=== PATIENT | female | born 1985 | race Caucasian/White ===

== ENCOUNTER 2019-05-26 13:25 | Emergency (ER) | payer OTHER, SELFPAY ==
[2019-05-26 13:42] VITALS: BP 135/80; PULSE 111; RESP 20; TEMP 37.3; O2SAT 100
--- NOTE | 2019-05-26 14:55 | ED.URI ---
HPI - URI/Sore Throat General Chief Complaint: Upper Respiratory Infection Stated Complaint: congestion/sore throat / fever/cough Time Seen by Provider: 05/26/19 14:55 Source: patient and RN notes reviewed Mode of arrival: ambulatory Limitations: no limitations History of Present Illness HPI Narrative: 33-year-old female who presents to [facility] care with complaints of sore throat which started yesterday afternoon increased in intensity overnight patient has low-grade fevers denies any chills or sweats. 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 Patient states that her throat is scratchy painful has been taking Tylenol and Ibuprofen.Patient has noted some cough with expectoration of clear mucous. MD elicited complaint: fever, cough and sore throat Onset (ago): day(s) (1) Consistency: progressively worsening Severity: moderate Pain scale (0-10): 5 Description of mucous: clear Able to tolerate fluids by mouth: Yes Exacerbating factors: swallowing Relieving factors: nothing Context: sick contacts Associated symptoms: fever and sore throat Treatments prior to arrival: acetaminophen and ibuprofen Related Data Home Medications Medication Instructions Recorded Confirmed omeprazole magnesium [Prilosec OTC] 20 mg PO DAILY 03/27/19 05/26/19 ondansetron 4 mg TRANSLINGUAL DAILY PRN 03/27/19 05/26/19 amitriptyline 25 mg DAILY 05/26/19 05/26/19 Allergies Allergy/AdvReac Type Severity Reaction Status Date / Time aloe vera Allergy Unknown Verified 04/03/19 09:03 Review of Systems Review of Systems: Narrative: CONSTITUTIONAL: low grade fever, chills, or sweats. EYES: Denies visual changes, redness, or discharge. ENT: Denies rhinorrhea, congestion,positive positive sore throat, no otalgia. CARDIOVASCULAR: Denies chest pain, palpitations, or edema. RESPIRATORY: Positive cough no dyspnea. GASTROINTESTINAL: Denies abdominal pain, nausea, vomiting, or diarrhea. GENITOURINARY: Denies dysuria or hematuria. SKIN: Denies rash or itching. MUSCULOSKELETAL: Denies back pain, joint pain, or myalgia. NEUROLOGIC: Denies headache, numbness, or weakness. PSYCHIATRIC: Denies anxiety or depression. All systems reviewed & are unremarkable except as noted in HPI and below PMFSH Past Medical History Medical History (Updated 05/26/19 @ 17:52 by Marycruz Oro NP) Depression GERD (gastroesophageal reflux disease) Surgical History Surgical History Hx of cholecystectomy Hx of endoscopic retrograde cholangiopancreatography Hx of esophagogastroduodenoscopy Family History Family History Grandparent Family history of osteoporosis Hypertension Family history of emphysema Family history of coronary artery disease Family history of type 2 diabetes mellitus Family history of renal failure Family history of congestive heart failure Acute myocardial infarction Hairy cell leukemia Father Hypertension Family history of diabetes mellitus in first degree relative Family history of sleep apnea Family history of neuropathy Family history of type 2 diabetes mellitus Diabetes mellitus Mother Hypertension Asthma Family history of arthritis Family history of bipolar disorder Family history of congenital heart disease Family history of chronic obstructive pulmonary disease Sibling Family history of bipolar disorder Social History Social History Smoking packs per day: 0.25 Smoking cigarettes per day: 5.0 Years smoked: 3 Smoking pack-years: 0.75 Smoking status: Never smoker Tobacco type: cigarettes Alcohol intake: current Drinks per week: 3 Substance use: never Exam Narrative: Exam Narrative: GENERAL: Well-appearing, well-nourished, and in no acute distress. HEAD: Normocephalic, atraumatic. EYES: PERRLA and EOMI. ENT: Nares clear, no
== END 2019-05-26 15:11 | disposition home or self-care (01) ==
PROVIDERS: Emergency Provider Registered Nurse
DX: J02.0 Streptococcal pharyngitis (principal); F17.210 Nicotine dependence, cigarettes, uncomplicated; K21.9 Gastro-esophageal reflux disease without esophagitis; F32.9 Major depressive disorder, single episode, unspecified
CPT/HCPCS: 87804; 87880; 99213; G0463

== ENCOUNTER 2020-01-04 18:15 | Emergency (ER) | payer OTHER, SELFPAY ==
[2020-01-04 18:27] VITALS: BP 145/99; PULSE 108; RESP 20; TEMP 37.3; O2SAT 100
--- NOTE | 2020-01-04 19:00 | ED.URI ---
HPI - URI/Sore Throat General Chief Complaint: Upper Respiratory Infection Stated Complaint: upper respiratory infection Source: patient Mode of arrival: ambulatory Limitations: no limitations History of Present Illness HPI Narrative: Patient is a 34-year-old female who presents with sore throat, headache, body aches, cough and general malaise x2 days. 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 She has had positive COVID exposures over the past weeks. She reports a medical history of GERD and depression. She denies taking any dsgg-srg-[id number] medications at this time. MD elicited complaint: cough Related Data Home Medications Medication Instructions Recorded Confirmed sertraline 50 mg DAILY 01/04/20 01/04/20 Allergies Allergy/AdvReac Type Severity Reaction Status Date / Time aloe vera Allergy Unknown Verified 04/03/19 09:03 Review of Systems Review of Systems: Narrative: CONSTITUTIONAL: Denies fever, chills, or sweats. EYES: Denies visual changes, redness, or discharge. ENT: Denies rhinorrhea, congestion, or otalgia. Reports sore throat CARDIOVASCULAR: Denies chest pain, palpitations, or edema. RESPIRATORY: Reports cough, denies dyspnea. GASTROINTESTINAL: Denies abdominal pain, nausea, vomiting, or diarrhea. GENITOURINARY: Denies dysuria or hematuria. SKIN: Denies rash or itching. MUSCULOSKELETAL: Denies back pain, joint pain, or myalgia. NEUROLOGIC: Denies headache, numbness, dizziness, or weakness. PSYCHIATRIC: Denies anxiety or depression. [facility] Past Medical History Medical History Depression GERD (gastroesophageal reflux disease) Surgical History Surgical History Hx of cholecystectomy Hx of endoscopic retrograde cholangiopancreatography Hx of esophagogastroduodenoscopy Family History Family History Grandparent Family history of osteoporosis Hypertension Family history of emphysema Family history of coronary artery disease Family history of type 2 diabetes mellitus Family history of renal failure Family history of congestive heart failure Acute myocardial infarction Hairy cell leukemia Father Hypertension Family history of diabetes mellitus in first degree relative Family history of sleep apnea Family history of neuropathy Family history of type 2 diabetes mellitus Diabetes mellitus Mother Hypertension Asthma Family history of arthritis Family history of bipolar disorder Family history of congenital heart disease Family history of chronic obstructive pulmonary disease Sibling Family history of bipolar disorder Social History Social History Smoking packs per day: 0.25 Smoking cigarettes per day: 5.0 Years smoked: 3 Smoking pack-years: 0.75 Smoking status: Never smoker Tobacco type: cigarettes Alcohol intake: current Drinks per week: 3 Substance use: never Gender identity (if verbalized by the patient): Female Exam Narrative: Exam Narrative: GENERAL: Well-appearing, well-nourished, and in no acute distress. HEAD: Normocephalic, atraumatic. EYES: No redness or drainage. Conjunctiva are normal. ENT: Mucous membranes pink and moist. Nares clear. No rhinorrhea. Throat positive for erythema and edema, no exudate l. Uvula midline. NECK: AROM. Supple. No lymphadenopathy. CHEST: No respiratory distress. Clear to auscultation. HEART: Regular rate and rhythm. No murmur appreciated. Normal peripheral pulses. GI: Soft, nontender without rebound, or guarding. No distention. Bowel sounds normal in all quadrants. EXTREMITIES: Normal range of motion. No edema. SKIN: Warm, dry, no rash. NEURO: No focal deficits. Alert and oriented x3. Gait steady. PSYCH: Normal affect. No signs of depression or anxiety.
== END 2020-01-04 19:13 | disposition home or self-care (01) ==
PROVIDERS: Emergency Provider Nurse Practitioner; PCP Nurse Practitioner Psychiatric/Mental Health
DX: J06.9 Acute upper respiratory infection, unspecified (principal); Z20.828 Contact with and (suspected) exposure to other viral communicable diseases; F32.9 Major depressive disorder, single episode, unspecified; K21.9 Gastro-esophageal reflux disease without esophagitis
CPT/HCPCS: 87081; 87880; 99213; G0463

== ENCOUNTER 2020-08-24 15:41 | Emergency (ER) | payer OTHER, SELFPAY ==
[2020-08-24 15:49] VITALS: BP 129/87; PULSE 99; RESP 18; TEMP 36.9; O2SAT 100
[2020-08-24 15:52] VITALS: BP 129/87; PULSE 99; RESP 18; TEMP 36.9; O2SAT 100
--- NOTE | 2020-08-24 15:59 | ED.EAR ---
HPI - Ear Problem General Chief complaint: Ear Stated complaint: Ear pain Source: patient and RN notes reviewed Mode of arrival: ambulatory Limitations: no limitations History of Present Illness HPI Narrative: This is a 34-year-old female who presented to urgent care with complaints of left ear pain. According to patient a couple days ago she started experiencing discomfort in ear fullness to her left ear. Patient notes that she will occasionally hear a popping sound when she would be important to blow her nose. Patient does have a history of otitis media. According to patient a couple years ago she had tubes inserted into her ear. Believe seizure allergies her condition has worsened. She was discharged home with to treat her ear infection. She denies any ear drainage, decreased hearing or fever. MD Complaint: ear discharge Location: left ear Related Data Home Medications Medication Instructions Recorded Confirmed sertraline 50 mg DAILY 01/04/20 01/04/20 Allergies Allergy/AdvReac Type Severity Reaction Status Date / Time aloe vera Allergy Unknown Verified 04/03/19 09:03 Review of Systems Review of Systems: Narrative: A 14 organ system Review of Systems was performed and pertinent positives included in the HPI, otherwise remaining ROS is negative. [facility] Past Medical History Medical History (Updated 08/24/20 @ 15:58 by TANISHA Martin) Depression GERD (gastroesophageal reflux disease) Surgical History Surgical History Hx of cholecystectomy Hx of endoscopic retrograde cholangiopancreatography Hx of esophagogastroduodenoscopy Family History Family History Grandparent Family history of osteoporosis Hypertension Family history of emphysema Family history of coronary artery disease Family history of type 2 diabetes mellitus Family history of renal failure Family history of congestive heart failure Acute myocardial infarction Hairy cell leukemia Father Hypertension Family history of diabetes mellitus in first degree relative Family history of sleep apnea Family history of neuropathy Family history of type 2 diabetes mellitus Diabetes mellitus Mother Hypertension Asthma Family history of arthritis Family history of bipolar disorder Family history of congenital heart disease Family history of chronic obstructive pulmonary disease Sibling Family history of bipolar disorder Social History Social History Smoking packs per day: 0.25 Smoking cigarettes per day: 5.0 Years smoked: 3 Smoking pack-years: 0.75 Smoking status: Never smoker Tobacco type: cigarettes Alcohol intake: current Drinks per week: 3 Substance use: never Gender identity (if verbalized by the patient): Female Exam Narrative: Exam Narrative: GENERAL: This is a well-nourished, well-developed patient, in no apparent distress. HEAD: normocephalic, atraumatic. EYES: PERRL. Sclera clear/white. Vision is grossly intact. EARS: External ears normal, auditory canals and TM edematous with erythematous NOSE: External nose normal with no obvious nasal discharge, nares without redness, no rhinorrhea. THROAT: Mucous membranes moist, posterior pharynx clear. NECK: Neck supple, non-tender without lymphadenopathy, masses or thyromegaly. CARDIOVASCULAR: Regular rate and rhythm without murmurs, gallops, or rubs. RESPIRATORY: Clear to auscultation. Breath sounds equal bilaterally. No wheezes, rales, or rhonchi. GASTROINTESTINAL: Abdomen soft, non-tender, nondistended. Bowel sounds are active. No hepato-splenomegaly, or palpable masses. No guarding. SKIN: warm, intact with no suspicious lesions or rash, good texture and turgor. NEURO: awake, alert, and oriented to person, place and time. There were no obvious focal neurologic abnormalities. Steady
== END 2020-08-24 15:59 | disposition home or self-care (01) ==
PROVIDERS: Emergency Provider Nurse Practitioner; PCP Nurse Practitioner Psychiatric/Mental Health
DX: H66.92 Otitis media, unspecified, left ear (principal); F17.210 Nicotine dependence, cigarettes, uncomplicated; K21.9 Gastro-esophageal reflux disease without esophagitis; F32.9 Major depressive disorder, single episode, unspecified
CPT/HCPCS: 99213; G0463

== ENCOUNTER 2022-02-09 14:28 | Emergency (ER) | payer OTHER, SELFPAY ==
[2022-02-09 14:30] VITALS: BP 139/84; PULSE 98; RESP 18; TEMP 36.8; O2SAT 100
--- NOTE | 2022-02-09 14:38 | ED.URI ---
HPI - URI/Sore Throat General Chief Complaint: Ear Stated Complaint: Lt Ear Irritation Time Seen by Provider: 02/09/22 14:39 Source: patient, RN notes reviewed and old records reviewed Mode of arrival: ambulatory Limitations: no limitations History of Present Illness HPI Narrative: 36-year-old female presents to the [facility] with complaints of left ear pain that started on Sunday. Patient reports history ear infections and even had tubes placed couple of years ago. ENT is Dr. Douglas. Denies any headaches. No sinus congestion. Denies fevers, chest pain, abdominal pain. Related Data Home Medications Medication Instructions Recorded Confirmed cetirizine 10 mg capsule (Zyrtec) 10 mg PO DAILY PRN Allergy Symptoms 07/05/21 02/09/22 fluticasone propionate 50 1 spray intranasal DAILY 07/05/21 02/09/22 mcg/actuation nasal spray,suspension levonorgestrel 20 mcg/24 hours (8 1 device intrauterine ONCE 07/05/21 02/09/22 yrs) 52 mg intrauterine device (Mirena) Allergies Allergy/AdvReac Type Severity Reaction Status Date / Time aloe vera Allergy Unknown Unknown Verified 02/09/22 14:39 pine Allergy Mild Unknown Uncoded 02/09/22 14:39 Review of Systems Review of Systems: All systems reviewed & are unremarkable except as noted in HPI and below Constitutional: Constitutional: Reports no additional constitutional complaints, Denies chills and Denies fever(s) Eyes: Eyes: Reports no additional eye complaints ENT: Reports as per HPI ( Left ear pain) Cardiovascular: Cardiovascular: Reports no additional cardiovascular complaints Respiratory: Respiratory: Reports no additional respiratory complaints Gastrointestinal: Gastrointestinal: Reports no additional gastrointestinal complaints Musculoskeletal: Musculoskeletal: Reports no additional musculoskeletal complaints Integumentary/Breasts: Skin/Breast: Reports system reviewed and no additional complaints, except as docu Neurologic: Reports system reviewed and no additional complaints, except as documented Psychiatric: Psychiatric: Reports no additional psychiatric complaints Allergic/Immunologic: Allergic/Immunologic: Reports no additional allergic/immunologic complaints PMFSH Past Medical History Medical History Depression GERD (gastroesophageal reflux disease) History of miscarriage IBS (irritable bowel syndrome) Right ovarian cyst Surgical History Surgical History Hx of cholecystectomy Hx of endoscopic retrograde cholangiopancreatography Hx of esophagogastroduodenoscopy [place] teeth removed Family History Family History Grandparent Family history of osteoporosis Hypertension Family history of emphysema Family history of coronary artery disease Family history of type 2 diabetes mellitus Family history of renal failure Family history of congestive heart failure Acute myocardial infarction Hairy cell leukemia Father Hypertension Family history of diabetes mellitus in first degree relative Family history of sleep apnea Family history of neuropathy Family history of type 2 diabetes mellitus Diabetes mellitus Mother Hypertension Asthma Family history of arthritis Family history of bipolar disorder Family history of congenital heart disease Family history of chronic obstructive pulmonary disease Sibling Family history of bipolar disorder Social History Social History Smoking packs per day: 0.25 Smoking cigarettes per day: 5.0 Years smoked: 3 Smoking pack-years: 0.75 Smoking status: Former smoker Tobacco type: cigarettes Alcohol intake: current Drinks per week: 3 Substance use: never Gender identity (if verbalized by the patient): Female Comments At the time of my signature, I revi
[2022-02-09 14:41] VITALS: BP 139/84; PULSE 98; RESP 18; TEMP 36.8; O2SAT 100
== END 2022-02-09 14:55 | disposition home or self-care (01) ==
PROVIDERS: Emergency Provider Nurse Practitioner; PCP Family Medicine
DX: H60.392 Other infective otitis externa, left ear (principal); H61.22 Impacted cerumen, left ear; K21.9 Gastro-esophageal reflux disease without esophagitis; Z87.891 Personal history of nicotine dependence
CPT/HCPCS: 69209; 99213; G0463

== ENCOUNTER 2022-06-19 09:55 | Emergency (ER) | payer OTHER, SELFPAY ==
[2022-06-19 10:03] VITALS: BP 129/91; PULSE 81; RESP 16; TEMP 36.4; O2SAT 100
--- NOTE | 2022-06-19 10:20 | ED.URI ---
HPI - URI/Sore Throat General Chief Complaint: Upper Respiratory Infection Stated Complaint: Bilateral Ear Irritation,Congestion Source: patient Mode of arrival: ambulatory Limitations: no limitations History of Present Illness HPI Narrative: 36-year-old female presents to [facility] with complaints of fluid to bilateral ears, left ear pain, throat irritation and nonproductive cough for the past 3 days. Patient reports long history of infections, patient reports that she recently had ear tubes they have since fallen out. Patient is established with local ENT. Patient denies fever, body aches, chills, nausea, vomiting or diarrhea. Patient has been taking [id number] Sudafed with minimal relief. Patient denies recent travel. Patient denies sick contacts MD elicited complaint: rhinorrhea, nasal congestion and other (yfn ear pain ) Onset (ago): day(s) (3) Able to tolerate fluids by mouth: Yes Related Data Home Medications Medication Instructions Recorded Confirmed cetirizine 10 mg capsule (Zyrtec) 10 mg PO DAILY PRN Allergy Symptoms 07/05/21 06/19/22 fluticasone propionate 50 1 spray intranasal DAILY 07/05/21 06/19/22 mcg/actuation nasal spray,suspension levonorgestrel 21 mcg/24 hours (8 1 device intrauterine ONCE 07/05/21 06/19/22 yrs) 52 mg intrauterine device (Mirena) famotidine 40 mg tablet 40 mg DIRECTED 06/19/22 06/19/22 Allergies Allergy/AdvReac Type Severity Reaction Status Date / Time aloe vera Allergy Unknown Unknown Verified 02/09/22 14:39 pine Allergy Mild Unknown Uncoded 02/09/22 14:39 Review of Systems Constitutional: Constitutional: Denies chills, Denies fatigue, Denies fever(s) and Denies weakness ENT: Denies vertigo, Denies dizziness, Denies epistaxis, Reports nasal congestion and Denies sore throat Comments: Bilateral ear irritation Cardiovascular: Cardiovascular: Denies chest pain Respiratory: Respiratory: Denies chest congestion, Reports cough, Denies dyspnea and Denies wheezing Gastrointestinal: Gastrointestinal: Denies diarrhea, Denies nausea and Denies vomiting Integumentary/Breasts: Skin/Breast: Denies rash PMFSH Past Medical History Medical History Depression GERD (gastroesophageal reflux disease) History of miscarriage IBS (irritable bowel syndrome) Right ovarian cyst Surgical History Surgical History Hx of cholecystectomy Hx of endoscopic retrograde cholangiopancreatography Hx of esophagogastroduodenoscopy [place] teeth removed Family History Family History Grandparent Family history of osteoporosis Hypertension Family history of emphysema Family history of coronary artery disease Family history of type 2 diabetes mellitus Family history of renal failure Family history of congestive heart failure Acute myocardial infarction Hairy cell leukemia Father Hypertension Family history of diabetes mellitus in first degree relative Family history of sleep apnea Family history of neuropathy Family history of type 2 diabetes mellitus Diabetes mellitus Mother Hypertension Asthma Family history of arthritis Family history of bipolar disorder Family history of congenital heart disease Family history of chronic obstructive pulmonary disease Sibling Family history of bipolar disorder Social History Social History Smoking packs per day: 0.25 Smoking cigarettes per day: 5.0 Years smoked: 3 Smoking pack-years: 0.75 Smoking status: Former smoker Tobacco type: cigarettes Alcohol intake: current Drinks per week: 3 Substance use: never Gender identity (if verbalized by the patient): Female Comments At time of signature, I agree with nursing past medical, surgical, social and family history. There is no rel
== END 2022-06-19 10:31 | disposition home or self-care (01) ==
PROVIDERS: Emergency Provider Nurse Practitioner Family; PCP Family Medicine
DX: H66.92 Otitis media, unspecified, left ear (principal); Z87.891 Personal history of nicotine dependence
CPT/HCPCS: 99213; G0463

== ENCOUNTER 2022-11-30 14:46 | Emergency (ER) | payer OTHER, SELFPAY ==
[2022-11-30 15:00] VITALS: BP 126/90; PULSE 72; RESP 18; TEMP 36.4; O2SAT 100
--- NOTE | 2022-11-30 15:17 | ED.URI ---
HPI - URI/Sore Throat General Chief Complaint: Upper Respiratory Infection Stated Complaint: stopped up Time Seen by Provider: 11/30/22 15:24 Source: patient, RN notes reviewed and old records reviewed Mode of arrival: ambulatory Limitations: no limitations History of Present Illness HPI Narrative: 37-year-old female presents to the [facility] with complaints of postnasal drip, sinus congestion, ears feel full, scratchy throat and a cough for 2 days. Has taken Mucinex Reports a fever yesterday, none today. Reports taking at home COVID test which she reports as negative, declined test in clinic. Related Data Home Medications Medication Instructions Recorded Confirmed cetirizine 10 mg capsule (Zyrtec) 10 mg PO DAILY PRN Allergy Symptoms 07/05/21 11/30/22 fluticasone propionate 50 1 spray intranasal DAILY 07/05/21 11/30/22 mcg/actuation nasal spray,suspension levonorgestrel 21 mcg/24 hours (8 1 device intrauterine ONCE 07/05/21 11/30/22 yrs) 52 mg intrauterine device (Mirena) famotidine 40 mg tablet 40 mg DIRECTED 06/19/22 11/30/22 Allergies Allergy/AdvReac Type Severity Reaction Status Date / Time aloe vera Allergy Unknown Unknown Verified 11/30/22 15:30 pine Allergy Mild Unknown Uncoded 02/09/22 14:39 Review of Systems Review of Systems: All systems reviewed & are unremarkable except as noted in HPI and below Constitutional: Constitutional: Reports no additional constitutional complaints Eyes: Eyes: Reports no additional eye complaints ENT: Reports as per HPI Cardiovascular: Cardiovascular: Reports no additional cardiovascular complaints, Denies chest pain and Denies dyspnea Respiratory: Respiratory: Reports as per HPI, Denies chest congestion, Reports cough and Denies dyspnea Gastrointestinal: Gastrointestinal: Reports no additional gastrointestinal complaints, Denies abdominal pain, Denies nausea and Denies vomiting Musculoskeletal: Musculoskeletal: Reports no additional musculoskeletal complaints Integumentary/Breasts: Skin/Breast: Reports system reviewed and no additional complaints, except as docu Neurologic: Reports system reviewed and no additional complaints, except as documented Psychiatric: Psychiatric: Reports no additional psychiatric complaints Allergic/Immunologic: Allergic/Immunologic: Reports no additional allergic/immunologic complaints PMFSH Past Medical History Medical History Depression GERD (gastroesophageal reflux disease) History of miscarriage IBS (irritable bowel syndrome) Right ovarian cyst Surgical History Surgical History Hx of cholecystectomy Hx of endoscopic retrograde cholangiopancreatography Hx of esophagogastroduodenoscopy [place] teeth removed Family History Family History Grandparent Family history of osteoporosis Hypertension Family history of emphysema Family history of coronary artery disease Family history of type 2 diabetes mellitus Family history of renal failure Family history of congestive heart failure Acute myocardial infarction Hairy cell leukemia Father Hypertension Family history of diabetes mellitus in first degree relative Family history of sleep apnea Family history of neuropathy Family history of type 2 diabetes mellitus Diabetes mellitus Mother Hypertension Asthma Family history of arthritis Family history of bipolar disorder Family history of congenital heart disease Family history of chronic obstructive pulmonary disease Sibling Family history of bipolar disorder Social History Social History Smoking packs per day: 0.25 Smoking cigarettes per day: 5.0 Years smoked: 3 Smoking pack-years: 0.75 Smoking status: Former smoker Tobacco type: cigarettes Alcohol intake: current
--- NOTE | 2022-11-30 15:42 | PC.NURSE ---
PT DID AT HOME COVID TEST THAT WAS NEGATIVE.
== END 2022-11-30 16:00 | disposition home or self-care (01) ==
PROVIDERS: Emergency Provider Nurse Practitioner; PCP Student in an Organized Health Care Education/Training Program
DX: J06.9 Acute upper respiratory infection, unspecified (principal); Z87.891 Personal history of nicotine dependence; K21.9 Gastro-esophageal reflux disease without esophagitis
CPT/HCPCS: 87081; 87880; 99213; G0463

== ENCOUNTER 2023-03-18 10:28 | Emergency (ER) | payer OTHER, SELFPAY ==
[2023-03-18 11:19] VITALS: BP 133/84; PULSE 89; RESP 16; TEMP 36.1; O2SAT 100
--- NOTE | 2023-03-18 11:50 | ED.EYEPROB ---
HPI - Eye Problem General Chief complaint: Eye Problems Stated complaint: Left Eye Irritation Time Seen by Provider: 03/18/23 10:30 Source: patient Mode of arrival: ambulatory Limitations: no limitations History of Present Illness HPI Narrative: 37-year-old female presents to [facility] complaints of irritation, redness, purulent drainage and matting to her left eye for the past week. Pt's daughter was diagnosed with pink eye 1 week ago. Patient reports that she wears contacts and have since taken out her contacts amd is wearing her glasses. Patient denies visual changes, fever, body aches, chills, nausea, vomiting or diarrhea chief complaint: eye redness Onset (ago): week(s) (1) Location: left eye Eye Symptoms: redness and discharge Associated symptoms: none Treatments Prior to Arrival: none Related Data Home Medications Medication Instructions Recorded Confirmed cetirizine 10 mg capsule (Zyrtec) 10 mg PO DAILY PRN Allergy Symptoms 07/05/21 03/18/23 levonorgestrel 21 mcg/24 hours (8 1 device intrauterine ONCE 07/05/21 03/18/23 yrs) 52 mg intrauterine device (Mirena) famotidine 40 mg tablet 40 mg DIRECTED 06/19/22 03/18/23 Allergies Allergy/AdvReac Type Severity Reaction Status Date / Time aloe vera AdvReac Mild Rash Verified 03/18/23 11:29 pine AdvReac Mild Rash Uncoded 03/18/23 11:29 Review of Systems Constitutional: Constitutional: Denies chills, Denies fatigue, Denies fever(s) and Denies weakness Eyes: Comments: Left eye erythema, drainage and matting ENT: Denies nasal congestion and Denies sore throat Cardiovascular: Cardiovascular: Denies chest pain Respiratory: Respiratory: Denies cough, Denies dyspnea and Denies wheezing Gastrointestinal: Gastrointestinal: Denies diarrhea, Denies nausea and Denies vomiting Integumentary/Breasts: Skin/Breast: Denies rash Neurologic: Denies dizziness, Denies syncope and Denies headache(s) [facility] Past Medical History Medical History Depression GERD (gastroesophageal reflux disease) History of miscarriage IBS (irritable bowel syndrome) Right ovarian cyst Surgical History Surgical History Hx of cholecystectomy Hx of endoscopic retrograde cholangiopancreatography Hx of esophagogastroduodenoscopy [place] teeth removed Family History Family History Grandparent Family history of osteoporosis Hypertension Family history of emphysema Family history of coronary artery disease Family history of type 2 diabetes mellitus Family history of renal failure Family history of congestive heart failure Acute myocardial infarction Hairy cell leukemia Father Hypertension Family history of diabetes mellitus in first degree relative Family history of sleep apnea Family history of neuropathy Family history of type 2 diabetes mellitus Diabetes mellitus Mother Hypertension Asthma Family history of arthritis Family history of bipolar disorder Family history of congenital heart disease Family history of chronic obstructive pulmonary disease Sibling Family history of bipolar disorder Social History Social History Smoking packs per day: 0.25 Smoking cigarettes per day: 5.0 Years smoked: 3 Smoking pack-years: 0.75 Smoking status: Former smoker Tobacco type: cigarettes Alcohol intake: current Drinks per week: 3 Substance use: never Gender identity (if verbalized by the patient): Female Comments At time of signature, I agree with nursing past medical, surgical, social and family history. There is no relevant family history pertinent to the presenting complaint. Exam Const: General: healthy appearing and no acute distress Nutritional Appearance: well nourished Orientation/consciousness: patient o
== END 2023-03-18 12:00 | disposition home or self-care (01) ==
PROVIDERS: Emergency Provider Nurse Practitioner Family; PCP Student in an Organized Health Care Education/Training Program
DX: H10.9 Unspecified conjunctivitis (principal); Z87.891 Personal history of nicotine dependence; K21.9 Gastro-esophageal reflux disease without esophagitis
CPT/HCPCS: 99213; G0463

== ENCOUNTER 2023-06-06 18:03 | Emergency (ER) | payer OTHER, SELFPAY ==
[2023-06-06 18:18] VITALS: BP 144/82; PULSE 109; RESP 16; TEMP 36.8; O2SAT 100
--- NOTE | 2023-06-06 18:47 | ED.URI ---
HPI - URI/Sore Throat General Chief Complaint: Upper Respiratory Infection Stated Complaint: bilateral ear pain,congestion Time Seen by Provider: 06/06/23 18:48 Source: patient and RN notes reviewed Mode of arrival: ambulatory Limitations: no limitations History of Present Illness HPI Narrative: 37-year-old female presents with concern for recurrent nasal congestion, rhinorrhea, ear pain. Reports chronic sinus problems, she sees an engine mechanic. He has been taking Sudafed and antihistamines without relief. MD elicited complaint: nasal congestion and other (ear pain) Related Data Home Medications Medication Instructions Recorded Confirmed cetirizine 10 mg capsule (Zyrtec) 10 mg PO DAILY PRN Allergy Symptoms 07/05/21 03/18/23 levonorgestrel 21 mcg/24 hours (8 1 device intrauterine ONCE 07/05/21 03/18/23 yrs) 52 mg intrauterine device (Mirena) Allergies Allergy/AdvReac Type Severity Reaction Status Date / Time aloe vera Allergy Mild Rash Verified 06/06/23 18:18 pine Allergy Mild Rash Uncoded 06/06/23 18:18 Review of Systems Review of Systems: CONSTITUTIONAL: Denies malaise, chills, sweats, or fever. EYES: Denies visual changes, redness, or discharge. ENT: Reports rhinorrhea, congestion, sinus pain, otalgia CARDIOVASCULAR: Denies chest pain, palpitations, or edema. RESPIRATORY: Denies cough. Denies dyspnea. GASTROINTESTINAL: Denies abdominal pain, nausea, vomiting, diarrhea SKIN: Denies rash or itching. MUSCULOSKELETAL: Denies myalgia. NEUROLOGIC: Denies headache. All systems reviewed & are unremarkable except as noted in HPI and below PMFSH Past Medical History Medical History Depression GERD (gastroesophageal reflux disease) History of miscarriage IBS (irritable bowel syndrome) Right ovarian cyst Surgical History Surgical History Hx of cholecystectomy Hx of endoscopic retrograde cholangiopancreatography Hx of esophagogastroduodenoscopy [place] teeth removed Family History Family History Grandparent Family history of osteoporosis Hypertension Family history of emphysema Family history of coronary artery disease Family history of type 2 diabetes mellitus Family history of renal failure Family history of congestive heart failure Acute myocardial infarction Hairy cell leukemia Father Hypertension Family history of diabetes mellitus in first degree relative Family history of sleep apnea Family history of neuropathy Family history of type 2 diabetes mellitus Diabetes mellitus Mother Hypertension Asthma Family history of arthritis Family history of bipolar disorder Family history of congenital heart disease Family history of chronic obstructive pulmonary disease Sibling Family history of bipolar disorder Social History Social History Smoking packs per day: 0.25 Smoking cigarettes per day: 5.0 Years smoked: 3 Smoking pack-years: 0.75 Smoking status: Former smoker Tobacco type: cigarettes Alcohol intake: current Drinks per week: 3 Substance use: never Gender identity (if verbalized by the patient): Female Comments At time of signature, agree with nursing past medical, surgical, social and family history. There is no relevant family history pertinent to the presenting complaint Exam Narrative: GENERAL: Nontoxic-appearing, well-nourished, and in no acute distress. HEAD: Normocephalic EYES: PERRLA, conjunctivae clear ENT: Nares clear, turbinates edematous and erythematous, clear discharge. Mucous membranes moist. TM pearly dos santos with dull light reflex on the left, erythematous and bulging on the right; no tragal tenderness. Oropharynx not erythematous without lesions. Tonsils not enlarged and without exudate, no drooling, no hoarseness, n
== END 2023-06-06 19:02 | disposition home or self-care (01) ==
PROVIDERS: Emergency Provider Nurse Practitioner
DX: H66.91 Otitis media, unspecified, right ear (principal); Z87.891 Personal history of nicotine dependence; K21.9 Gastro-esophageal reflux disease without esophagitis
CPT/HCPCS: 99213; G0463

== ENCOUNTER 2024-03-12 16:09 | Emergency (ER) | payer OTHER, SELFPAY ==
[2024-03-12 16:26] VITALS: BP 132/86; PULSE 96; RESP 18; TEMP 36.3; O2SAT 100
--- NOTE | 2024-03-12 16:43 | ED_ITS ---
HPI - URI/Sore Throat General Chief Complaint: Upper Respiratory Infection Stated Complaint: cold symptoms Time Seen by Provider: 03/12/24 16:36 Source: patient and RN notes reviewed Mode of arrival: ambulatory Limitations: no limitations History of Present Illness HPI Narrative: Patient presents today with a 4 day history of cough, sore throat, nasal congestion, rhinorrhea, nausea, hoarseness. She also reports some shortness of breath if she has been talking for a long period of time. Denies fever. She has tried several different [id number] medications such as cold and flu, Sudafed, Mucinex DM, Benadryl, Zyrtec with some minimal short-term relief. Patient is a school nurse Related Data Home Medications ?Medication ?Instructions ?Recorded ?Confirmed ?Last Taken ?Type allergy shots 03/12/24 Unknown History bupropion HCl 150 mg 24 hr tablet, mg PO 03/12/24 Unknown History extended release cetirizine 10 mg tablet (All Day 10 mg PO DAILY PRN allergy symptoms 03/12/24 03/12/24 Unknown History Allergy (cetirizine)) Allergies Allergy/AdvReac Type Severity Reaction Status Date / Time No Known Allergies Allergy Verified 03/12/24 16:26 Review of Systems Review of Systems: CONSTITUTIONAL: Denies body aches, fever, chills, or sweats. EYES: Denies visual changes, redness, or discharge. ENT: Denies otalgia.+ congestion, rhinorrhea, hoarse voice, sore throat CARDIOVASCULAR: Denies chest pain, palpitations, or edema. RESPIRATORY: + cough, shortness of breath GASTROINTESTINAL: Denies abdominal pain, vomiting, or diarrhea.+ nausea GENITOURINARY: Denies dysuria or hematuria. SKIN: Denies rash, itching, or wounds. MUSCULOSKELETAL: Denies back pain, joint pain, or myalgia. NEUROLOGIC: Denies headache, numbness, tingling, or weakness. PSYCH: Denies depression or anxiety. PMFSH Comments At time of signature, I have reviewed and agree with nursing past medical, surgical, social and family history unless otherwise noted. Please see nursing chart for further information. There is no relevant family history pertinent to the presenting complaint Exam Narrative: GENERAL: Mildly ill-appearing, well-nourished, and in no acute distress. HEAD: Normocephalic, atraumatic. EYES: EOMI. No redness or drainage. Conjunctivae normal. ENT: Mucous membranes pink and moist. Nares congested with rhinorrhea. TMs normal bilaterally. Throat normal. Uvula midline. NECK: Normal AROM. Supple. No lymphadenopathy. CHEST: No respiratory distress. Clear to auscultation. HEART: Regular rate and rhythm. No murmur appreciated. EXTREMITIES: Normal range of motion. No edema. SKIN: Warm, dry, no rash. Capillary refill normal. Normal skin turgor. NEURO: No focal deficits. Alert and oriented x3. Gait steady. PSYCH: Normal affect. No signs of depression or anxiety. Course Course Level of Care: Express Care Visit Vital Signs Vital signs: Vital Signs Temperature 97.3 F L 03/12/24 16:26 Pulse Rate 96 03/12/24 16:26 Respiratory Rate 18 03/12/24 16:26 Blood Pressure 132/86 03/12/24 16:26 Pulse Oximetry 100 03/12/24 16:26 Oxygen Delivery Room Air 03/12/24 16:26 Temperature 97.3 F L 03/12/24 16:26 Pulse Rate 96 03/12/24 16:26 Respiratory Rate 18 03/12/24 16:26 Blood Pressure 132/86 03/12/24 16:26 Pulse Oximetry 100 03/12/24 16:26 Oxygen Delivery Room Air 03/12/24 16:26 Reviewed MDM - URI/Sore Throat MDM Narrative Medical decision making narrative: Influenza, COVID, rapid strep negative. Symptoms likely viral in etiology. Discussed [id number] medication use and duration of illness. No prescription medications indicated at this time. Anticipatory guidance given. Differential Diagnosis Differential diagnosis: Likely upper respiratory infection, viral infection, influenza, pharyngitis and other (Strep throat, COVID) Lab Data Attestation: I reviewed the patient's lab results. Lab results narrative: COVID-19, influenza a and B, rapid strep negative Labs: Lab Results 03/12/24 Range/Units 16:39 POC Influenza A Ag Negative (Negative) POC Influenza B Ag Negative (Negative) POC SARS CoV-2 Ag Pending POC Grp A Strep Screen Negative (Negative) Critical Care Time Critical Care Time Critical Care Time: No Discharge Plan Discharge Clinical Impression: Upper respiratory infection Qualifiers: URI type: unspecified URI Qualified Code(s): J06.9 - Acute upper respiratory infection, unspecified Patient Disposition: Home, Self-Care Condition: Stable Instructions: Upper Respiratory Infection (DC) Additional Instructions: Your COVID-19, influenza, and rapid strep swabs were negative today at [facility]. You will be notified in a few days if the culture comes back positive for strep, and appropriate antibiotics will be called in for you at that time. Your symptoms are likely due to a viral illness, which is not treated with antibiotics. Viral symptoms can be present for up to 7-10 days. Take Tylenol or ibuprofen for fever or pain. Take the Tessalon Perles as needed for cough. Rest and stay hydrated. Follow up with your PCP in 5 days if symptoms are not improving. Go to the ER immediately if you have any difficulty breathing or swallowing, develops a new fever greater than 100.3. Your blood pressure was elevated above 120/80 today at Urgent Care. This puts you above the threshold for follow up. Please schedule a followup visit with your personal physician as soon as possible, for further evaluation and treatmen t. Even blood pressure exceeding 120/80 may indicate pre-hypertension. Patient Language: Green[place]ic Prescriptions: New benzonatate 200 mg capsule 200 mg PO TID PRN (Reason: cough) Qty: 30 0RF No Action bupropion HCl 150 mg tablet extended release 24 hr PO cetirizine [All Day Allergy (cetirizine)] 10 mg tablet 10 mg PO DAILY PRN (Reason: allergy symptoms) allergy shots Follow-up/Referrals: Fabricio Carter MD [Primary Care Provider] - Time of Disposition: 17:03
[2024-03-12 17:00] LABS: EDINFLUASCREEN Negative (Negative); EDINFLUBSCREEN Negative (Negative); EDSTREPNEGPOS1 Negative (Negative)
[2024-03-13 09:50] LABS: EDCOVIDSCREEN Negative (Negative)
== END 2024-03-12 17:07 | disposition home or self-care (01) ==
PROVIDERS: Emergency Provider Nurse Practitioner; PCP Family Medicine
DX: J06.9 Acute upper respiratory infection, unspecified (principal); Z20.822 Contact with and (suspected) exposure to COVID-19
CPT/HCPCS: 87081; 87426; 87804; 87880; 99203; G0463

== ENCOUNTER 2025-01-29 15:26 | Outpatient (CLI) | payer OTHER, SELFPAY ==
--- NOTE | ~2025-01-29 | US_ITS ---
EXAMINATION: US pelvic complete w TV, 01/29/2025 15:27 CDT HISTORY: N93.9 - Abnormal uterine and vaginal bleeding, unspecified Comparison: None Technique: Cardenas-scale and color Doppler images were obtained. Findings: Uterus: Uterus anteverted 8.5 x 3.7 x 5.3 cm. . Endometrium 6 mm. Right Ovary:Right ovary 3.2 x 2 x 2.5 cm, no adnexal mass, normal flow. Left Ovary: Left ovary 2.1 x 1.8 x 2 cm, no adnexal mass, normal flow Free Fluid: None Impression: No acute abnormality. Reviewed, dictated and finalized at location P. Impression: No acute abnormality.
== END 2025-01-29 15:27 | disposition home or self-care (01) ==
LOC: MICIMG 15:27
PROVIDERS: PCP Family Medicine; Visit Provider Nurse Practitioner Obstetrics & Gynecology
DX: N93.9 Abnormal uterine and vaginal bleeding, unspecified (principal)
CPT/HCPCS: 76830; 76856